=== PATIENT | female | born 1960 | race Two or more races ===

== ENCOUNTER 2017-07-23 10:44 | Emergency (ER) | payer OTHER ==
[2017-07-23 10:56] VITALS: BP 99/64
== END 2017-07-23 11:53 | disposition left against medical advice (07) ==
LOC: ED 10:44
DX: R10.9 Unspecified abdominal pain (principal); Z53.21 Procedure and treatment not carried out due to patient leaving prior to being seen by health care provider

== ENCOUNTER 2018-10-05 11:14 | Emergency (ER) | payer OTHER ==
[2018-10-05 11:54] VITALS: BP 116/58
--- NOTE | 2018-10-05 12:36 | UC ---
Throat Pain/Nasal Cuco HPI - HPI Summary HPI Summary: 58 yo female presents with sinus pain/pressure/congestion for 1 week. She has not been taking anything OTC for her symptoms. She denies fever, chills, sore throat, SOB, cough. - History of Current Complaint Chief Complaint: UCRespiratory Stated Complaint: HEAD/CHEST CONGESTION Time Seen by Provider: 10/05/18 12:36 Hx Obtained From: Patient Onset/Duration: Gradual Onset Severity: Moderate Pain Intensity: 6 Pain Scale Used: 0-10 Numeric - Allergies/Home Medications Allergies/Adverse Reactions: Allergies Allergy/AdvReac Type Severity Reaction Status Date / Time No Known Allergies Allergy Verified 10/06/15 12:38 Home Medications: Home Medications Albuterol HFA INHALER* [Ventolin HFA Inhaler*] 1 puff INH Q4H PRN 10/05/18 [ History Confirmed 10/05/18] Beclomethasone 80 MCG MDI(NF) [Qvar 80 MCG MDI(NF)] 1 puff INH DAILY 10/05/18 [ History Confirmed 10/05/18] Diclofenac 1% GEL (NF) [Voltaren 1% GEL (NF)] 1 applic TOPICAL ONCE PRN [History Confirmed 10/05/18] Folic Acid 1 mg PO DAILY 10/05/18 [History Confirmed 10/05/18] Tofacitinib Citrate [Xeljanz Xr] 1 tab PO DAILY 10/05/18 [History Confirmed 07/14] PMH/Surg Hx/FS Hx/Imm Hx - Additional Past Medical History Additional PMH: rheumatoid arthritis Respiratory History: Asthma Other History Of: Negative For: Anticoagulant Therapy - Surgical History Surgical History: Yes Surgery Procedure, Year, and Place: Right foot surgery; meniscus tear right knee Apr 13, 2014 - Family History Known Family History: Positive: None, Other - neg FHx of Breast CA - Social History Lives: With Family Alcohol Use: None Substance Use Type: None Smoking Status (MU): Never Smoked Tobacco Review of Systems All Other Systems Reviewed And Are Negative: Yes Constitutional: Positive: Negative Skin: Positive: Negative Eyes: Positive: Negative ENT: Positive: Nasal Discharge, Sinus Congestion, Sinus Pain/Tenderness Respiratory: Positive: Negative Cardiovascular: Positive: Negative Gastrointestinal: Positive: Negative Neurovascular: Positive: Negative Neurological: Positive: Negative Psychological: Positive: Negative Physical Exam - Summary Physical Exam Summary: GENERAL: NAD. WDWN. No pain distress. SKIN: No rashes, sores, lesions, or open wounds. HEENT: Head: AT/NC Eyes: EOM intact. Conjunctiva clear without inflammation or discharge. Ears: Hearing grossly normal. TMs intact, no bulging, erythema, or edema. Nose: Nasal mucosa mildly swollen and erythematous with yellow/ clear discharge. TTP maxillary and frontal sinus. Positive post nasal drip Throat: Posterior oropharynx without exudates, erythema, or tonsillar enlargement. Uvula midline. NECK: Supple. Nontender. No lymphadenopathy. CHEST: CTAB. No r/r/w. No accessory muscle use. Breathing comfortably and in no distress. CV: RRR. Without m/r/g. Pulses intact. NEURO: Alert. PSYCH: Age appropriate behavior. Triage Information Reviewed: Yes Vital Signs: Initial Vital Signs Temp 98.2 F 10/05/18 11:45 Pulse 65 10/05/18 11:45 Resp 18 10/05/18 11:45 BP 116/58 10/05/18 11:45 Pulse Ox 100 10/05/18 11:45 Vital Signs Reviewed: Yes Throat Pain/Nasal Course/Dx - Course Course Of Treatment: Sinusitis - Differential Dx/Diagnosis Provider Diagnosis: Sinusitis Discharge - Sign-Out/Discharge Documenting (check all that apply): Patient Departure All imaging exams completed and their final reports reviewed: No Studies - Discharge Plan Condition: Stable Disposition: HOME Prescriptions: Azithromycin TAB* [Zithromax TAB (Z-IJEOMA) 250 mg #6 tabs] 2 tab PO .TODAY, THEN 1 DAILY #1 ijeoma Patient Education Materials: Sinusitis (ED) Referrals: Sherry Burch MD [Primary Care Provider] - Additional Instructions: If you develop a fever, shortness of breath, chest pain, new or worsening symptoms - please call your PCP or go to the ED. - Billing Disposition and Condition Condition: STABLE Disposition: Home
== END 2018-10-05 12:50 | disposition home or self-care (01) ==
LOC: UCEAST 11:14
DX: J32.9 Chronic sinusitis, unspecified (principal); J45.909 Unspecified asthma, uncomplicated; M06.9 Rheumatoid arthritis, unspecified
CPT/HCPCS: 99202; G0463